=== PATIENT | male | born 1990 | race Caucasian/White ===

== ENCOUNTER 2024-09-15 09:05 | Emergency (ER) | payer OTHER, SELFPAY ==
[2024-09-15 09:16] VITALS: BP 123/55
--- NOTE | 2024-09-15 09:21 | ED.GENMED ---
History of Present Illness
General
Chief Complaint: Abdominal Pain
Time Seen by Provider: 09/15/24 09:20
History of Present Illness
History of Present Illness:
TIME OF INITIAL ENCOUNTER: 9:25 AM
HPI: Patient presents with abdominal pain that started 1 and half hours prior to arrival. He points along the abdominal mid axillary line. Pain worsens with twisting his torso and flexing at the torso. He did not eat breakfast and does not have
much of an appetite currently. He did not have any fevers. There is never any nausea, vomiting, or diarrhea.
EXAM:
GENERAL: Well appearing in no distress
HEENT: Moist oral mucosa
CARDIOVASCULAR: No murmurs, normal heart rate, regular rhythm, No chest wall tenderness
PULMONARY: No respiratory distress, breath sounds are clear and equal
ABDOMEN: Soft with no peritoneal signs, mild right lower quadrant tenderness and less tenderness in the abdominal mid axillary line on the right side
NEUROLOGIC: Excellent strength all extremities, no coordination deficits
PSYCHIATRIC: Appropriate mental status, normal insight and judgement
EXTREMITIES: Nontender, no edema, moves all extremities equally
SKIN: No rash, no lesions
NUMBER AND COMPLEXITY OF PROBLEMS ADDRESSED AT THE ENCOUNTER
� Chronic conditions affecting care: History of substance use, opiate use disorder
� Acute Exacerbation and/or Progression of Chronic Illness: This is an acute problem
� Differential Diagnosis includes: Oblique muscle strain, appendicitis, ureteral stone/colic
AMOUNT AND/OR COMPLEXITY OF DATA TO BE REVIEWED AND ANALYZED
� I performed an independent evaluation of and my interpretation is:
EKG:
CT: CT imaging shows some degree of constipation but a normal appendix
X-rays:
Laboratory Studies: CBC including white count are normal. Urinalysis is unremarkable.
Other:
� Review of other/old records: I reviewed records, the patient has had abnormal LFTs in 2017
� Clinical information was obtained by an independent historian: I spoke to family member at bedside
� Prescriptions/Medications Considered but not given: Offered and considered analgesia such as Toradol however the patient declined
� Further testing considered but not performed:
RISK OF COMPLICATIONS AND/OR MORBIDITY OR MORTALITY OF PATIENT MANAGEMENT
� Social determinants of health affecting care: Lives at home, former opiate abuse
� Discussion with other providers:
� Escalation of care including admission/observation vs risk of discharge considered: The patient had relatively abrupt onset right-sided abdominal pain, favor more of a musculoskeletal etiology however given the tenderness in
the right lower quadrant, will obtain CT imaging. I have also asked for a urinalysis as his symptoms were abrupt in onset looking for hematuria.
ANY OTHER UPDATES:
12:40 PM: I reassessed patient and he appears very comfortable. He has in unremarkable ED workup including negative CT of the abdomen and pelvis other than constipation�the patient denies constipation type of symptoms but I did suggest trying
MiraLAX.
Past History
Past History
ED Past Medical History: None
ED Past Surgical History: None
Social History
Alcohol: Former
Drug: Former user, Cocaine and Other (Methamphetamines)
Phy Exam
Physical Exam
Physical Exam:
See HPI
Course
Orders/Labs/Results
Orders:
Orders
09/15/24 09:39
CT Abd/pelvis W Iv Cont Urgent
Comment:
Reason For Exam: R pain
09/15/24 09:45
Complete Blood Count/With Diff Urgent
Comprehensive Metabolic Panel Urgent
Lipase Urgent
Urinalysis Reflex To Culture Urgent
Date Specimen was Collected: 09/15/24
Time Specimen was Collected: 09:39
Abnormal Lab Results
09/15/24
09:45
Monocytes % 11.1 H %
(1.7-9.3)
09/15/24 09:45
09/15/24 09:45
Vital Signs
Initial and Last Documented VS:
Initial Vital Signs
Temp Pulse Resp BP Pulse Ox
98.9 F 66 16 123/55 98
09/15/24 09:16 09/15/24 09:16 09/15/24 09:16 09/15/24 09:16 09/15/24 09:16
Last Documented Vital Signs
Temp Pulse Resp BP Pulse Ox
98.9 F 60 16 101/62 99
09/15/24 09:16 09/15/24 13:11 09/15/24 13:11 09/15/24 13:11 09/15/24 13:11
*Critical Care Note
Total Time (30-74mins, 75-104mins- exclusive of procedures): Not Applicable
ED Attending Note
-
Portions of this chart may have been created with voice recognition software.� Occasional wrong word or��sound alike� substitutions may have occurred due to the inherent limitations of voice recognition software.
Discharge Plan
Departure
Patient Disposition: Home (Routine Discharge)
Date of Disposition: 09/15/24
Time of Disposition: 12:43
Patient with high blood pressure during this ER visit?: Yes
Discharge Problem:
Abdominal pain
Instructions: Abdominal Pain
Prescriptions:
No Action
No Current Medications
0
Referrals:
Martin Payan, DO [Family Provider] -
Activity Restrictions/Additional Instructions:
Your blood work including white blood cell count, liver numbers, kidney function, pancreas test are all normal. The CAT scan shows a normal appendix. There is some degree of constipation noted�consider taking MiraLAX for a few days but it sounds
like you have been having normal bowel movements. Incidentally, the radiologist noted a small cyst measuring 2.5 cm in the left side of the liver however this would not cause any of your symptoms. I favor more of a musculoskeletal etiology such as
an abdominal oblique muscle strain�please follow-up with your primary care doctor. I recommend 3-4 [id number] ibuprofen (Motrin) every 8 hours with food for a few days. Return here if worse. Return here if worse or other concerns.
Interventions
Interventions:
*Risk Screen - Suicide Last Done: 09/15/24 09:16
*General Assessment Last Done: 09/15/24 09:16
*ED COVID-19 Vaccine History Last Done: 09/15/24 09:16
*Nursing Disposition Last Done: 09/15/24 13:11
PN-Kgyyky-Jyoxpudzts Assessment Last Done: 09/15/24 09:44
Discharge Date and Time
Discharge Date/Time: 09/15/24 13:12
Print Language: JAPANESE
[2024-09-15 09:44] VITALS: BMI 29.7
[2024-09-15 10:04] LABS: % Basophils 0.6 % (0-2); % Eosinophils 4.3 % (0-6); % Immature Granulocytes 0.2 % (0-0.5); % Lymphocytes 32.8 % (20.5-51.1); % Monocytes 11.1 % (1.7-9.3); Absolute Eosinophils 0.2 10^3/uL (0-0.7); Absolute Lymphocytes 1.8 10^3/uL (1.2-3.4); Absolute Monocytes 0.6 10^3/uL (0.1-0.6); Absolute Neutrophils 2.7 10^3/uL (1.4-6.5); Hematocrit 40.4 % (39.0-52.0); Hemoglobin 13.9 g/dL (13.0-18.0); Mean Corp Hgb Conc. 34.4 g/dL (33.0-37.0); Mean Corpuscular Hgb 29.6 pg (27.0-31.0); Mean Platelet Volume 10.1 fL (7.4-10.4); Nucleated Red Blood Cells % 0 % (-); Platelet Count 192 10^3/uL (130-400); White Blood Cell Count 5.3 10^3/uL (4.8-10.8)
[2024-09-15 10:11] LABS: ALT (SGPT) 23 U/L (0-50); AST (SGOT) 28 U/L (17-59); Albumin 4.3 g/dl (3.5-5.0); Alkaline Phosphatase 60 U/L (38-126); Blood Urea Nitrogen 12 mg/dl (9-20); Carbon Dioxide 28 mmol/L (22-30); Chloride 102 mmol/L (98-107); Estimated Creatinine Clearance 112 ml/min; Glucose 90 mg/dl (70-99); Lipase 36 U/L (23-300); Potassium 4.1 mmol/L (3.5-5.1); Sodium 139 mmol/L (135-145); Total Bilirubin 0.9 mg/dl (0.2-1.3); Total Protein 6.8 g/dl (6.3-8.2); eGFR > 60.00
[2024-09-15 10:21] LABS: Urine Albumin Negative (Neg - Trace); Urine Bilirubin Negative (Negative); Urine Character Clear (Clear); Urine Color Yellow; Urine Glucose Negative (Negative); Urine Ketone Negative (Negative); Urine Leukocyte Negative (Negative); Urine Nitrite Negative (Negative); Urine Occult Blood Negative (Negative); Urine Urobilinogen Negative (Neg - 1+)
[2024-09-15 13:11] VITALS: BP 101/62
== END 2024-09-15 13:12 | disposition home or self-care (01) ==
LOC: EMR 09:05
PROVIDERS: EMERGENCY PHYSICIAN Emergency Medicine; FAMILY PHYSICIAN Family Medicine
DX: K59.00 Constipation, unspecified (principal)
CPT/HCPCS: 99284; 74177; 80053; 81003; 83690; 85025; Q9967